=== PATIENT | male | born 1960 | race Asian ===

== ENCOUNTER 2016-10-23 07:59 | Outpatient (CLI) | payer OTHER ==
[~2016-10-23 07:59] MED LIST: ACET7.5T70 PO; ALBU90AE13 INH; ALBUTEROL0.083 % IN; BUDE1AER5 INH; HYDR-2748 PO; HYZAAR1 TA1 PO; LYRICA50 MG PO; NEXIUM40 M1 PO; ONDA4TAB3 PO; PHENELX32 PO; PRED5TAB3 PO; PREG75CA PO; TIZA4TAB5 PO; VALS160T PO
[2016-10-23 09:00] LABS: POTASSIUM 3.9 mmol/L (3.6-5.2); SODIUM 140 mmol/L (136-145)
== END 2016-10-23 19:12 | disposition home or self-care (01) ==
LOC: LABW 07:59
PROVIDERS: Internal Medicine Cardiovascular Disease
DX: Z79.899 Other long term (current) drug therapy (principal); Z51.81 Encounter for therapeutic drug level monitoring
CPT/HCPCS: 36415; 80048; 80061

== ENCOUNTER 2016-10-28 07:15 | Outpatient (CLI) | payer OTHER ==
[~2016-10-28] VITALS: Ht 33 cm; Wt 0.5 kg
== END 2016-10-28 21:24 | disposition home or self-care (01) ==
LOC: NM 07:15
DX: R07.89 Other chest pain (principal)
CPT/HCPCS: A9500; J2785

== ENCOUNTER 2017-02-19 09:24 | Outpatient (CLI) | payer OTHER | END 2017-02-19 11:00 | disposition home or self-care (01) | LOC: RAD 09:24 | DX: M54.2 Cervicalgia (principal); K21.9 Gastro-esophageal reflux disease without esophagitis ==

== ENCOUNTER 2017-02-25 12:05 | Outpatient (CLI) | payer OTHER ==
[2017-02-25 13:27] LABS: PLATELET COUNT 313 K/uL (142-355)
[2017-02-25 14:39] LABS: POTASSIUM 4.4 mmol/L (3.6-5.2); SODIUM 141 mmol/L (136-145)
== END 2017-02-25 20:02 | disposition home or self-care (01) ==
LOC: LAB 12:05
PROVIDERS: Family Medicine
DX: K21.9 Gastro-esophageal reflux disease without esophagitis (principal); D64.89 Other specified anemias; I10 Essential (primary) hypertension; E55.9 Vitamin D deficiency, unspecified; R79.89 Other specified abnormal findings of blood chemistry
CPT/HCPCS: 80053; 80061; 81000; 82043; 82306; 82570; 83036; 83735; 84153; 84439; 84443; 84550; 85027

== ENCOUNTER 2017-09-14 08:00 | Outpatient (CLI) | payer OTHER | END 2017-09-14 19:31 | disposition home or self-care (01) | LOC: CT 08:00 | DX: M54.12 Radiculopathy, cervical region (principal) ==

== ENCOUNTER 2018-01-30 15:19 | Outpatient (CLI) | payer OTHER | END 2018-01-30 20:09 | disposition home or self-care (01) | LOC: LABW 15:19 | DX: N39.0 Urinary tract infection, site not specified (principal); R31.0 Gross hematuria | CPT/HCPCS: 36415; 81000; 84154; 87086; 87088 ==

== ENCOUNTER 2018-05-01 10:35 | Outpatient (CLI) | payer OTHER | END 2018-05-01 23:04 | disposition home or self-care (01) | LOC: RAD 10:35 | DX: M25.551 Pain in right hip (principal); M54.41 Lumbago with sciatica, right side ==

== ENCOUNTER 2019-02-28 03:10 | Emergency (ER) | payer OTHER ==
[~2019-02-28] VITALS: Ht 180.3 cm; Wt 73.5 kg
[2019-02-28] MEDS ORDERED: HYDR10TA51 PO (03:19)
[2019-02-28] MEDS ORDERED: ALPR0.5T24 PO (03:21)
[2019-02-28] MEDS ORDERED: TAMS0.4C PO (03:22)
[2019-02-28] MEDS ORDERED: AMLODIPINE BESYLATE PO (03:22)
[2019-02-28] MEDS ORDERED: GABA300C2 PO (03:23)
[2019-02-28 05:20] VITALS: BP 125/77; TEMP 98
== END 2019-02-28 05:20 | disposition home or self-care (01) ==
LOC: ED 03:10
DX: R31.9 Hematuria, unspecified (principal); R10.30 Lower abdominal pain, unspecified
CPT/HCPCS: 81000; 96372; 99283; J1885; J2405

== ENCOUNTER 2019-11-25 09:22 | Emergency (ER) | payer OTHER ==
[~2019-11-25] VITALS: Ht 180.3 cm; Wt 73.5 kg
[~2019-11-25 09:22] MED LIST changes: +ALPR0.5T24 PO; +AMLODIPINE BESYLATE PO; +GABA300C2 PO; +HYDR10TA51 PO; +TAMS0.4C PO
[2019-11-25 10:48] LABS: POTASSIUM 3.6 mmol/L (3.6-5.2); SODIUM 139 mmol/L (136-145)
[2019-11-25 10:55] LABS: PLATELET COUNT 291 K/uL (142-355)
[2019-11-25 15:00] VITALS: TEMP 98.6
[2019-11-25 15:07] VITALS: BP 157/82
== END 2019-11-25 15:00 | disposition home or self-care (01) ==
LOC: ED 09:22
PROVIDERS: Family Medicine
DX: R07.89 Other chest pain (principal); M94.0 Chondrocostal junction syndrome [Tietze]
CPT/HCPCS: 80053; 81000; 82550; 84484; 85027; 87502; 93005; 99284

== ENCOUNTER 2020-04-09 11:23 | Emergency (ER) | payer OTHER ==
[~2020-04-09] VITALS: Ht 180.3 cm; Wt 73.5 kg
[2020-04-09 11:43] VITALS: TEMP 98.9
[2020-04-09 12:25] LABS: PLATELET COUNT 292 K/uL (142-355)
[2020-04-09 12:38] LABS: POTASSIUM 4.5 mmol/L (3.6-5.2); SODIUM 141 mmol/L (136-145)
[2020-04-09 13:35] VITALS: BP 173/87
== END 2020-04-09 13:35 | disposition home or self-care (01) ==
LOC: ED 11:23
PROVIDERS: Emergency Medicine
DX: J44.9 Chronic obstructive pulmonary disease, unspecified (principal)
CPT/HCPCS: 80053; 82550; 82553; 83880; 84484; 85027; 93005; 96360; 96375; 99284; J2930

== ENCOUNTER 2020-04-29 05:52 | Emergency (ER) | payer OTHER ==
[~2020-04-29] VITALS: Ht 180.3 cm; Wt 72.6 kg
[2020-04-29 06:22] LABS: PLATELET COUNT 210 K/uL (142-355)
[2020-04-29 06:35] LABS: POTASSIUM 3.9 mmol/L (3.6-5.2)
[2020-04-29 06:47] VITALS: BP 145/71; TEMP 98.9
== END 2020-04-29 06:47 | disposition home or self-care (01) ==
LOC: ED 05:52
PROVIDERS: Family Medicine
DX: U07.1 COVID-19 (principal); J06.9 Acute upper respiratory infection, unspecified
CPT/HCPCS: 80053; 85027; 87502; 87635; 87651; 99283; G2023; U00003

== ENCOUNTER 2020-05-02 08:20 | Emergency (ER) | payer OTHER ==
[~2020-05-02] VITALS: Ht 180.3 cm; Wt 66.2 kg
[2020-05-02 09:56] LABS: PLATELET COUNT 198 K/uL (142-355)
[2020-05-02 10:12] LABS: POTASSIUM 3.7 mmol/L (3.6-5.2)
[2020-05-02 11:25] VITALS: BP 126/64; TEMP 99
== END 2020-05-02 11:36 | disposition home or self-care (01) ==
LOC: ED 08:20
PROVIDERS: Family Medicine
DX: J06.9 Acute upper respiratory infection, unspecified (principal); R53.83 Other fatigue
CPT/HCPCS: 80053; 82728; 85027; 96372; 99283; J2930

== ENCOUNTER 2020-05-05 10:03 | Emergency (ER) | payer OTHER ==
[~2020-05-05] VITALS: Ht 172.7 cm; Wt 72.6 kg
[2020-05-05 12:34] LABS: PLATELET COUNT 532 K/uL (142-355)
[2020-05-05 12:35] LABS: POTASSIUM 3.6 mmol/L (3.6-5.2); SODIUM 138 mmol/L (136-145)
[2020-05-06 04:28] VITALS: BP 129/64; TEMP 99.1
== END 2020-05-06 04:25 | disposition home or self-care (01) ==
LOC: ED 10:03
PROVIDERS: General Practice
DX: U07.1 COVID-19 (principal)
CPT/HCPCS: 36600; 80053; 82728; 82805; 83605; 83735; 84484; 85027; 86140; 87040; 96360; 99284; J0696; J7120

== ENCOUNTER 2020-05-20 09:54 | Emergency (ER) | payer OTHER ==
[~2020-05-20] VITALS: Ht 172.7 cm; Wt 72.6 kg
[2020-05-20 10:03] VITALS: TEMP 98.3
[2020-05-20 11:27] LABS: PLATELET COUNT 654 K/uL (142-355)
[2020-05-20 14:00] VITALS: BP 125/89
== END 2020-05-20 14:45 | disposition home or self-care (01) ==
LOC: ED 09:54
PROVIDERS: Family Medicine
DX: Z20.828 Contact with and (suspected) exposure to other viral communicable diseases (principal); R06.09 Other forms of dyspnea; J18.9 Pneumonia, unspecified organism
CPT/HCPCS: 36415; 80053; 81000; 83605; 85027; 87040; 87635; 99283; 99284; U0003

== ENCOUNTER 2020-08-26 12:25 | Outpatient (CLI) | payer OTHER | END 2020-08-26 19:06 | disposition home or self-care (01) | LOC: RAD 12:25 | DX: J44.9 Chronic obstructive pulmonary disease, unspecified (principal); I10 Essential (primary) hypertension; U07.1 COVID-19; R42 Dizziness and giddiness; M10.9 Gout, unspecified; F41.8 Other specified anxiety disorders; M54.2 Cervicalgia; M54.5 Low back pain ==

== ENCOUNTER 2020-09-01 01:15 | Emergency (ER) | payer OTHER ==
[~2020-09-01] VITALS: Ht 180.3 cm; Wt 73.5 kg
[2020-09-01 02:34] LABS: POTASSIUM 3.6 mmol/L (3.6-5.2)
[2020-09-01 02:54] LABS: PLATELET COUNT 389 K/uL (142-355)
[2020-09-01 03:45] VITALS: BP 158/72; TEMP 98.9
== END 2020-09-01 03:45 | disposition home or self-care (01) ==
LOC: ED 01:15
PROVIDERS: Family Medicine
DX: I10 Essential (primary) hypertension (principal)
CPT/HCPCS: 80053; 81000; 85007; 85027; 93005; 99284

== ENCOUNTER 2020-10-27 13:26 | Outpatient (CLI) | payer OTHER | END 2020-10-27 20:44 | disposition home or self-care (01) | LOC: RAD 13:26 | PROVIDERS: ATTEND Family Medicine | DX: M54.2 Cervicalgia (principal); G62.9 Polyneuropathy, unspecified; G89.4 Chronic pain syndrome ==

== ENCOUNTER 2021-03-17 14:30 | Outpatient (CLI) | payer OTHER | END 2021-03-17 22:24 | disposition home or self-care (01) | LOC: CT 14:30 | PROVIDERS: ATTEND Family Medicine | DX: R51.9 Headache, unspecified (principal); R42 Dizziness and giddiness | CPT/HCPCS: 36415; 82565; 84520; Q9963 ==

== ENCOUNTER 2021-04-30 09:35 | Outpatient (CLI) | payer OTHER | END 2021-04-30 19:08 | disposition home or self-care (01) | LOC: RAD 09:35 | PROVIDERS: ATTEND Family Medicine | DX: M25.552 Pain in left hip (principal) ==

== ENCOUNTER 2021-06-12 09:16 | Outpatient (CLI) | payer OTHER | END 2021-06-12 21:57 | disposition home or self-care (01) | LOC: RAD 09:16 | PROVIDERS: ATTEND Physician Assistant | DX: M25.552 Pain in left hip (principal) ==

== ENCOUNTER → 2021-07-01 | Outpatient (CLI) | payer OTHER | LOC: MRI 09:54 | PROVIDERS: ATTEND Physician Assistant | DX: M25.552 Pain in left hip (principal) ==

== ENCOUNTER 2021-07-14 08:13 | Outpatient (CLI) | payer OTHER | END 2021-07-14 19:05 | disposition home or self-care (01) | LOC: CT 08:13 | PROVIDERS: ATTEND Orthopaedic Surgery | DX: R93.89 Abnormal findings on diagnostic imaging of other specified body structures (principal) | CPT/HCPCS: 36415; 82565; 84520; Q9963 ==

== ENCOUNTER 2021-07-23 13:35 | Emergency (ER) | payer OTHER ==
[~2021-07-23] VITALS: Ht 180.3 cm; Wt 74.8 kg
[2021-07-23 15:59] VITALS: BP 146/82; TEMP 97.2
== END 2021-07-23 16:02 | disposition home or self-care (01) ==
LOC: ED 13:35
DX: R22.1 Localized swelling, mass and lump, neck (principal)
CPT/HCPCS: 99283

== ENCOUNTER 2021-09-18 07:28 | Outpatient (CLI) | payer OTHER | END 2021-09-18 18:58 | disposition home or self-care (01) | LOC: CT 07:28 | PROVIDERS: ATTEND Specialist | DX: R10.9 Unspecified abdominal pain (principal) ==

== ENCOUNTER 2021-10-08 07:51 | Outpatient (CLI) | payer OTHER | END 2021-10-08 19:20 | disposition home or self-care (01) | LOC: NM 07:51 | PROVIDERS: ATTEND Internal Medicine Gastroenterology | DX: R10.13 Epigastric pain (principal) | CPT/HCPCS: A9537 ==

== ENCOUNTER 2022-02-02 22:07 | Emergency (ER) | payer OTHER ==
[~2022-02-02] VITALS: Ht 180.3 cm; Wt 79.4 kg
[2022-02-02 23:03] LABS: PLATELET COUNT 273 K/uL (142-355)
[2022-02-02 23:19] LABS: POTASSIUM 4.3 mmol/L (3.6-5.2)
[2022-02-03 01:15] VITALS: BP 144/76; TEMP 98.1
== END 2022-02-03 01:15 | disposition home or self-care (01) ==
LOC: ED 22:07
PROVIDERS: Emergency Medicine
DX: E11.65 Type 2 diabetes mellitus with hyperglycemia (principal); Z79.4 Long term (current) use of insulin
CPT/HCPCS: 36415; 36600; 80048; 82805; 82948; 85027; 96360; 96361; 96374; 99284

== ENCOUNTER 2022-02-25 10:33 | Outpatient (CLI) | payer OTHER | END 2022-02-25 19:03 | disposition home or self-care (01) | LOC: LABW 10:33 | PROVIDERS: ATTEND Nurse Practitioner Family | DX: C61 Malignant neoplasm of prostate (principal) | CPT/HCPCS: 36415; 84153 ==

== ENCOUNTER 2022-03-18 11:35 | Outpatient (CLI) | payer OTHER | END 2022-03-18 18:58 | disposition home or self-care (01) | LOC: RAD 11:35 | PROVIDERS: ATTEND Family Medicine | DX: K59.00 Constipation, unspecified (principal); R14.0 Abdominal distension (gaseous); R10.9 Unspecified abdominal pain ==

== ENCOUNTER 2022-07-27 11:16 | Outpatient (CLI) | payer OTHER | END 2022-07-27 19:33 | disposition home or self-care (01) | LOC: RAD 11:16 | PROVIDERS: ATTEND Family Medicine | DX: M54.59 Other low back pain (principal) ==

== ENCOUNTER 2022-08-26 09:27 | Emergency (ER) | payer OTHER ==
[~2022-08-26] VITALS: Ht 180.3 cm; Wt 83.9 kg
[2022-08-26 09:33] VITALS: TEMP 98.6
[2022-08-26 10:04] LABS: PLATELET COUNT 307 K/uL (142-355)
[2022-08-26 10:14] LABS: POTASSIUM 3.6 mmol/L (3.6-5.2)
[2022-08-26 12:45] VITALS: BP 138/71
== END 2022-08-26 13:07 | disposition home or self-care (01) ==
LOC: ED 09:27
PROVIDERS: Emergency Medicine
DX: J18.9 Pneumonia, unspecified organism (principal); Z20.822 Contact with and (suspected) exposure to COVID-19
CPT/HCPCS: 80053; 84484; 85027; 87502; 87635; 93005; 99283; J0696; U0003

== ENCOUNTER 2022-11-17 13:05 | Outpatient (CLI) | payer OTHER | END 2022-11-17 19:26 | disposition home or self-care (01) | LOC: RESP 13:05 | PROVIDERS: ATTEND Family Medicine | DX: J44.9 Chronic obstructive pulmonary disease, unspecified (principal); R06.02 Shortness of breath ==

== ENCOUNTER 2022-12-06 17:05 | Emergency (ER) | payer OTHER ==
[~2022-12-06] VITALS: Ht 180.3 cm; Wt 86.6 kg
[2022-12-06 18:43] VITALS: BP 128/73; TEMP 98.9
== END 2022-12-06 18:56 | disposition home or self-care (01) ==
LOC: ED 17:05
DX: S00.03XA Contusion of scalp, initial encounter (principal); S16.1XXA Strain of muscle, fascia and tendon at neck level, initial encounter; S29.012A Strain of muscle and tendon of back wall of thorax, initial encounter; S39.012A Strain of muscle, fascia and tendon of lower back, initial encounter; W01.198A Fall on same level from slipping, tripping and stumbling with subsequent striking against other object, initial encounter; Y93.01 Activity, walking, marching and hiking; Y92.89 Other specified places as the place of occurrence of the external cause
CPT/HCPCS: 96360; 96361; 96374; 96375; 99284; J2270; J2405

== ENCOUNTER 2023-01-10 13:23 | Outpatient (CLI) | payer OTHER | END 2023-01-10 19:00 | disposition home or self-care (01) | LOC: RAD 13:23 | PROVIDERS: ATTEND Internal Medicine Sleep Medicine | DX: R06.09 Other forms of dyspnea (principal) ==

== ENCOUNTER 2023-02-17 07:32 | Outpatient (CLI) | payer OTHER ==
[~2023-02-17] VITALS: Ht 180.3 cm; Wt 87.5 kg
== END 2023-02-17 19:02 | disposition home or self-care (01) ==
LOC: NM 07:32
PROVIDERS: ATTEND Internal Medicine Cardiovascular Disease
DX: R07.89 Other chest pain (principal)
CPT/HCPCS: A9500; J2785

== ENCOUNTER 2023-03-22 13:24 | Outpatient (CLI) | payer OTHER ==
[2023-03-22 13:43] LABS: PLATELET COUNT 343 K/uL (142-355)
[2023-03-22 14:07] LABS: POTASSIUM 3.6 mmol/L (3.6-5.2)
== END 2023-03-22 18:59 | disposition home or self-care (01) ==
LOC: LABW 13:24
PROVIDERS: ATTEND Family Medicine
DX: N18.30 Chronic kidney disease, stage 3 unspecified (principal); E83.52 Hypercalcemia; D64.89 Other specified anemias
CPT/HCPCS: 36415; 80053; 82330; 82728; 83540; 83550; 83970; 84100; 85027